=== PATIENT | female | born 1985 | race American Indian/Alaskan Native ===

== ENCOUNTER 2018-04-30 20:25 | Emergency (ER) | payer OTHER ==
[2018-04-30 20:40] VITALS: BP 124/65; PULSE 71; RESP 18; TEMP 98.2; O2SAT 99; BMI 29.7
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
--- NOTE | 2018-05-01 10:41 | CT ---
Date of service: 04/30/2018 PROCEDURE: CT HEAD WITHOUT CONTRAST. HISTORY: headache COMPARISON: None available. TECHNIQUE: Axial computed tomography images were obtained through the head/brain without intravenous contrast. Radiation dose: Total exam DLP = 1341.74 mGy-cm. This CT exam was performed using one or more of the following dose reduction techniques: Automated exposure control, adjustment of the mA and/or kV according to patient size, and/or use of iterative reconstruction technique. FINDINGS: HEMORRHAGE: No intracranial hemorrhage. BRAIN: No mass effect or edema. 5 x 10 mm hypodense focus left medial temporal lobe which possibly communicates with the left lateral ventricle. The siddiqui-white matter differentiation appears intact. Please note that MRI with diffusion imaging is more sensitive in the detection of acute ischemic event. VENTRICLES: No hydrocephalus. CALVARIUM: Unremarkable. PARANASAL SINUSES: Unremarkable as visualized. No significant inflammatory changes. MASTOID AIR CELLS: Unremarkable as visualized. No inflammatory changes. OTHER FINDINGS: Question prominence of bilateral parotid glands. IMPRESSION: 5 x 10 mm hypodense focus left medial temporal lobe which possibly communicates with the left lateral ventricle. Considerations include but not limited to dilated perivascular space, a chronic lacunar infarction, atypical schizencephaly. Recommend follow-up outpatient MRI of the brain without IV contrast. Question prominence bilateral parotid glands. Preliminary impression was provided by [facility]. Study marked for PA review.
--- NOTE | 2018-05-01 10:42 | CT ---
Date of service: 04/30/2018 CT cervical spine without IV contrast Indication: neck pain Comparison: None available Technique: Axial computed tomography images were obtained of the cervical spine without the use of intravenous contrast. Coronal and sagittal reformatted images were created and reviewed. This CT exam was performed using 1 or more of the following dose reduction techniques: Automated exposure control, adjustment of the MAA and/or kV according to patient size, and/or use of iterative reconstruction technique. Radiation dose: Total exam DLP = 589.87 mGy-cm. Findings: Straightening of the normal cervical lordosis may be related to muscle spasm or positioning. There is no evidence of acute fracture or subluxation. There is preserved alignment, vertebral body height, intervertebral disc spaces. The prevertebral soft tissues and spinolaminar lines appear intact. The lateral masses are preserved. The dens tip is intact. There is proper alignment of the lateral masses of C1 with the C2 vertebral body. Included portions of the thyroid gland demonstrates 2.6 x 3.0 cm heterogeneous mass on the left with probable cystic component. Included portions of lung apices appear clear. Impression: Straightening of the normal cervical lordosis may be related to muscle spasm or positioning. No evidence of acute fracture or subluxation. Included portions of the thyroid gland demonstrates 2.6 x 3.0 cm heterogeneous mass on the left with probable cystic component. Recommend thyroid ultrasound for further characterization. Preliminary impression was provided by [facility]. Study marked for PA review.
== END 2018-04-30 22:38 | disposition home or self-care (01) ==
LOC: ED 20:25
DX: T14.8XXA Other injury of unspecified body region, initial encounter (principal); V49.9XXA Car occupant (driver) (passenger) injured in unspecified traffic accident, initial encounter